=== PATIENT | female | born 1980 | race Caucasian/White ===

== ENCOUNTER 2016-10-12 17:16 | Emergency (ER) | payer MEDICAID ==
[~2016-10-12] VITALS: Ht 157.5 cm; Wt 63.5 kg
--- NOTE | 2016-10-12 17:36 | NUR ---
MD AT THE BEDSIDE FOR EVAL AND EXAM.
--- NOTE | 2016-10-12 17:56 | NUR ---
Patient discharged to home in stable conditon. Written and verbal after care instructions given. Patient verbalizes understanding of instructions.
[2016-10-12 17:57] VITALS: BP 122/70
== END 2016-10-12 18:03 | disposition home or self-care (01) ==
LOC: ER 17:16
DX: R07.9 Chest pain, unspecified (principal)
CPT/HCPCS: 93005; A4663

== ENCOUNTER 2024-02-08 13:55 | Emergency (ER) | payer MEDICAID, OTHER ==
[~2024-02-08] VITALS: Ht 160 cm; Wt 60.8 kg
[2024-02-08] MEDS ORDERED: ONDANSETRON 4 MG/2 ML VIAL ONE (14:14)
[2024-02-08] MEDS ORDERED: HYDROMORPHONE 1 MG/1 ML DISP.SYRIN ONE (14:14)
[2024-02-08] MEDS ORDERED: LORAZEPAM 2 MG/1 ML VIAL ONE (14:15)
[2024-02-08 14:22] LABS: BASOPHILS % (AUTO) 0.5 % (0.0-2.0); EOSINOPHILS % (AUTO) 0.5 % (0.0-7.0); HEMATOCRIT 39.5 % (31.2-41.9); HEMOGLOBIN 13.1 g/dL (10.9-14.3); LYMPHOCYTES # (AUTO) 1.6 K/uL (0.8-4.8); LYMPHOCYTES % (AUTO) 19.9 % (20.5-51.5); MEAN CORPUSCULAR HEMOGLOBIN 28.3 uug (24.7-32.8); MEAN CORPUSCULAR HGB CONC 33 g/dL (32.3-35.6); MEAN CORPUSCULAR VOLUME 85.5 fL (75.5-95.3); MONOCYTES # (AUTO) 0.8 K/uL (0.1-1.30); MONOCYTES % (AUTO) 9.3 % (0.0-11.0); NEUTROPHILS # (AUTO) 5.7 K/uL (1.8-8.9); NEUTROPHILS % (AUTO) 69.8 % (38.5-71.5); PLATELET COUNT (AUTO) 233 K/uL (179-408); RED BLOOD CELL COUNT(AUTO) 4.61 MIL/uL (3.63-4.92); RED CELL DISTRIBUTION WIDTH 13.8 % (12.3-17.7); WHITE BLOOD COUNT (AUTO) 8.2 K/uL (3.8-11.8)
[2024-02-08 14:23] LABS: DIFFERENTIAL COMMENT 1
[2024-02-08] MEDS: LORAZEPAM 2 MG/1 ML VIAL IV ONE (14:25)
[2024-02-08] MEDS: HYDROMORPHONE 1 MG/1 ML DISP.SYRIN IV ONE (14:25)
[2024-02-08] MEDS: ONDANSETRON 4 MG/2 ML VIAL IV ONE (14:25)
[2024-02-08 14:29] LABS: CALCIUM 9.1 mg/dL (8.5-10.1); CREATININE 0.6 mg/dL (0.6-1.3)
[2024-02-08 14:38] LABS: ALBUMIN 3.4 g/dL (3.4-5.0); BILIRUBIN,DIRECT 0.1 mg/dL (0.0-0.2); BILIRUBIN,TOTAL 0.4 mg/dL (0.2-1.0); TOTAL PROTEIN, SERUM 6.6 g/dL (6.4-8.2)
[2024-02-08] MEDS ORDERED: OMEP-99 PO (16:05)
[2024-02-08] MEDS ORDERED: POTA25TA7 PO (16:05)
[2024-02-08 16:27] VITALS: BP 133/91; TEMP 98.3; O2SAT 100
== END 2024-02-08 16:28 | disposition home or self-care (01) ==
LOC: ER 13:55
DX: R10.13 Epigastric pain (principal); R11.2 Nausea with vomiting, unspecified; E87.6 Hypokalemia
CPT/HCPCS: 99285; 96374; 76705; 80076; 80048; 83690; 85025; 36415; J1170; A4606; A4663; J2060; J2405